=== PATIENT | female | born 1955 | race Hispanic/Latino ===

== ENCOUNTER 2021-08-31 10:42 | Outpatient (CLI) | payer OTHER | END 2021-08-31 10:43 | disposition home or self-care (01) | LOC: CSHMRI 10:42 | PROVIDERS: ATTEND Family Medicine | DX: S89.91XA Unspecified injury of right lower leg, initial encounter (principal); S83.241A Other tear of medial meniscus, current injury, right knee, initial encounter ==

== ENCOUNTER 2024-12-05 10:07 | Outpatient (CLI) | payer MEDICARE ==
[2024-12-05 11:20] LABS: Estimated GFR - POC 80.0
== END 2024-12-05 10:08 | disposition home or self-care (01) ==
LOC: CSHMRI 10:07
PROVIDERS: ATTEND Physician Assistant
DX: Z08 Encounter for follow-up examination after completed treatment for malignant neoplasm (principal); Z85.3 Personal history of malignant neoplasm of breast
CPT/HCPCS: 36415; 82565 ×2; C8908

== ENCOUNTER 2024-12-06 07:06 | Outpatient (CLI) | payer MEDICARE | END 2024-12-06 07:07 | disposition home or self-care (01) | LOC: CSHULT 07:06 | PROVIDERS: ATTEND Physician Assistant | DX: K76.0 Fatty (change of) liver, not elsewhere classified (principal); Z83.79 Family history of other diseases of the digestive system; K76.89 Other specified diseases of liver | CPT/HCPCS: 76705 ==